=== PATIENT | male | born 1975 | race Caucasian/White ===

== ENCOUNTER 2016-11-23 19:34 | Emergency (ER) | payer OTHER, BC ==
[2016-11-23 21:32] VITALS: BP 160/92
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
== END 2016-11-23 20:06 | disposition home or self-care (01) ==
LOC: FB.ED 19:34
DX: S80.212A Abrasion, left knee, initial encounter (principal); S40.212A Abrasion of left shoulder, initial encounter; S80.211A Abrasion, right knee, initial encounter; I10 Essential (primary) hypertension; V49.9XXA Car occupant (driver) (passenger) injured in unspecified traffic accident, initial encounter
CPT/HCPCS: 99283